=== PATIENT | male | born 1990 | race African-American/Black ===

== ENCOUNTER 2020-06-05 15:32 | Emergency (ER) | payer SELFPAY ==
[~2020-06-05] VITALS: Ht 193 cm; Wt 104.3 kg
[2020-06-05 16:26] VITALS: BP 131/75
== END 2020-06-05 18:07 | disposition home or self-care (01) ==
LOC: ER 15:45
DX: S93.521A Sprain of metatarsophalangeal joint of right great toe, initial encounter (principal); M20.12 Hallux valgus (acquired), left foot; M20.11 Hallux valgus (acquired), right foot; Z60.2 Problems related to living alone; W05.1XXA Fall from non-moving nonmotorized scooter, initial encounter; Y93.89 Activity, other specified; Y92.89 Other specified places as the place of occurrence of the external cause; Y99.8 Other external cause status
CPT/HCPCS: 73630-TC